=== PATIENT | male | born 1995 | race Caucasian/White ===

== ENCOUNTER 2017-09-13 01:47 | Emergency (ER) | payer MEDICAID ==
[~2017-09-13] VITALS: Ht 185.4 cm; Wt 64.8 kg
[2017-09-13 04:24] VITALS: BP 118/79
== END 2017-09-13 05:30 | disposition left against medical advice (07) ==
LOC: ER 01:47
DX: R10.32 Left lower quadrant pain (principal); Z53.21 Procedure and treatment not carried out due to patient leaving prior to being seen by health care provider

== ENCOUNTER 2020-08-15 15:10 | Emergency (ER) | payer MEDICAID, OTHER ==
[~2020-08-15] VITALS: Ht 185.4 cm; Wt 75.0 kg
[2020-08-15 18:00] VITALS: BP 110/71
[2020-08-15 18:29] LABS: BASOPHILS % 0.4 % (0.0-2.0); EOSINOPHILS % 0.6 % (0.0-5.0); HEMATOCRIT. 45.2 % (42.0-52.0); HEMOGLOBIN. 15.4 g/dL (14.0-18.0); LYMPHOCYTES % 30.4 % (20.0-50.0); MEAN CORPUSCULAR HEMOGLOBIN 28.7 pg (28.0-32.0); MEAN CORPUSCULAR VOLUME 84.3 fL (80.0-94.0); MEAN PLATELET VOLUME 9.1 fl (7.4-10.4); MONOCYTES % 10.2 % (2.0-8.0); NEUTROPHILS % 58.4 % (40.0-76.0); PLATELET 252 x1000/uL (130-400); RED BLOOD CELL COUNT 5.36 mill/uL (4.7-6.1); RED CELL DISTRIBUTION WIDTH 13.5 % (11.6-14.6)
[2020-08-15 18:31] LABS: CHLORIDE 106 mEq/L (98-107)
== END 2020-08-15 19:30 | disposition home or self-care (01) ==
LOC: ER 15:10
DX: R07.89 Other chest pain (principal); F41.0 Panic disorder [episodic paroxysmal anxiety]
CPT/HCPCS: 36415; 71045; 80048; 84484; 85025; 93005; 99285

== ENCOUNTER 2022-12-01 17:54 | Emergency (ER) | payer MEDICAID, OTHER ==
[~2022-12-01] VITALS: Ht 185.4 cm; Wt 65.9 kg
[2022-12-01 17:58] VITALS: BP 121/84
[2022-12-01 18:45] LABS: CLARITY URINE CLEAR (CLEAR); COLOR URINE YELLOW (YELLOW); KETONES URINE NEGATIVE (NEGATIVE); OCCULT BLOOD URINE NEGATIVE (NEGATIVE); PH URINE 5.5 (4.5-8.0); PROTEIN URINE NEGATIVE (NEGATIVE); SPECIFIC GRAVITY URINE 1.026 (1.005-1.030)
[2022-12-01 18:46] LABS: LEUKOCYTE ESTERASE URINE NEGATIVE (NEGATIVE); NITRITE URINE NEGATIVE (NEGATIVE)
[2022-12-01] MEDS ORDERED: ESCI10TA MT (21:33)
[2022-12-01] MEDS ORDERED: IBUP-2029 MT (21:33)
[2022-12-05 04:12] LABS: NEISSERIA GONORRHOEAE NAA Negative (Negative)
== END 2022-12-01 21:42 | disposition home or self-care (01) ==
LOC: ER 17:54
DX: K40.90 Unilateral inguinal hernia, without obstruction or gangrene, not specified as recurrent (principal); Z98.890 Other specified postprocedural states
CPT/HCPCS: 76870; 81003; 87491; 87591; 93976; 99284